=== PATIENT | female | born 1940 | race Caucasian/White ===

== ENCOUNTER → 2017-01-02 | Outpatient (REF) | payer MEDICARE | LOC: M SFHCCLAY 11:38 | PROVIDERS: ATTEND Nurse Practitioner | DX: N30.00 Acute cystitis without hematuria (principal) ==

== ENCOUNTER → 2017-01-06 | Outpatient (CLI) | payer MEDICARE ==
--- NOTE | 2017-01-06 12:47 | REP ---
Chest PA and lateral views: Comparisons are the PA and lateral views dated 09/09/[address] dated 05/14/2011. There is mediastinal widening from goitrous enlargement of the thyroid has a seen on the comparison CT. Upon review of the comparison CT, I note that the trachea is deviated anteriorly and to the right and is compressed by the goitrous enlargement of the thyroid. Lung morgan are clear. Cardiac size is normal. The jeremy, mediastinum, and bony thorax are unremarkable. Impression: No acute cardiopulmonary findings. Goitrous enlargement of the thyroid, resulting in mediastinal widening. On the comparison CT, The trachea is displaced anteriorly into the right and appears compressed by the enlarged thyroid. Signed by Santiago Bautista MD 01/06/2017 12:37 P
--- NOTE | 2017-01-07 11:20 | REP ---
Thyroid sonography: Repeat dictation. Shortness of breath on exertion. History of goiter and stridor. Comparison study: June 25, 2016 showed a multinodular thyroid on the right. The patient status post left thyroidectomy. Today's findings: The right lobe dimensions are 5.1 x 2.7 x 1.5 cm. The thyroid isthmus measures 0.3 cm in thickness. The left lobe is removed. No left thyroid tissue is seen. Right lobe contains a heterogeneous nodule in its upper pole with dimensions of 1.6 x 1.1 x 1.1 cm. There is also a mid thyroid nodule measuring 1.1 x 1.7 x 2.3 cm. A third nodule is seen in the medial aspect of the right thyroid at the isthmus measuring 1.5 x 1.6 x 1.1 cm. The mid pole nodule in the right lobe is a little larger than on the prior study. Otherwise unchanged. Impression: Multinodular thyroid. Three nodules identified. Signed by Dougie Antonio MD 01/07/2017 03:37 P
== END ==
LOC: M RAD 12:13
PROVIDERS: ATTEND Nurse Practitioner
DX: R06.02 Shortness of breath (principal)

== ENCOUNTER → 2017-02-05 | Outpatient (CLI) | payer MEDICARE ==
[2017-02-05 18:04] LABS: CREATININE FOR GFR 1.01 MG/DL (0.55-1.02)
== END ==
LOC: M LAB 16:53
PROVIDERS: ATTEND Nurse Practitioner Family
DX: Z01.89 Encounter for other specified special examinations (principal)

== ENCOUNTER → 2017-02-13 | Outpatient (CLI) | payer MEDICARE ==
[~2017-02-13] MED LIST: ISOVUE-370 76% 100ML VIAL (Q9967) As Ordered ONE
--- NOTE | 2017-02-13 14:45 | REP ---
Clinical: Shortness of breath. Technique: Axial contrast enhanced images from the thoracic inlet to the upper abdomen using 100 ml Isovue 370 intravenous contrast material with coronal and sagittal re-formations. Comparison: 05/14/2011. Findings: A large heterogeneous enhancing mass insinuates between in the trachea and the esophagus from the level of the thoracic inlet to the sonali measuring 10.0 x 4.1 x 6.7 cm and is most compatible with thyroid tissue likely residual from prior left reid-thyroid resection when compared to prior chest CT dated 05/14/2011. The right thyroid gland is mildly enlarged and demonstrates subtle posteroinferior extension as well. The trachea and sonali appear patent and relatively normal despite the large mass lesion. There is however mass effect on the esophagus posterior to the mass. The remainder of the mediastinum appears relatively normal with moderate atherosclerotic changes noted to the aorta and coronary arteries. No axillary, hilar, or mediastinal adenopathy is appreciated. The bilateral lung morgan are well-aerated and clear. No pulmonary parenchymal consolidation, nodule or mass lesion is appreciated. No pleural effusion/reaction or pneumothorax. Musculoskeletal structures are intact. Impression: 1. Large heterogeneous middle mediastinal mass measuring 10.0 x 4.1 x 6.7 cm with scattered parenchymal calcifications is most compatible with thyroid tissue and appears to cause compression and mass effect of the esophagus with a relatively normal patent appearance to the trachea by current evaluation. 2. No further acute mediastinal or pleuroparenchymal process. Signed by Rodriguez Lopez MD 02/13/2017 02:36 P
== END ==
LOC: M RAD 13:46
PROVIDERS: ATTEND Nurse Practitioner Family
DX: R06.02 Shortness of breath (principal)
CPT/HCPCS: 71260; Q9967

== ENCOUNTER → 2017-03-31 | Outpatient (REF) | payer MEDICARE | LOC: M SFHCCLAY 15:10 | PROVIDERS: ATTEND Nurse Practitioner | DX: N30.00 Acute cystitis without hematuria (principal) | CPT/HCPCS: 81002; 87088; 87186; G0463 ==

== ENCOUNTER → 2017-04-08 | Outpatient (CLI) | payer MEDICARE, OTHER ==
[2017-04-08 17:19] LABS: BLOOD UREA NITROGEN 19 MG/DL (7-18); CREATININE FOR GFR 0.72 MG/DL (0.55-1.02); GLOMERULAR FILTRATION RATE > 60.0 (>39)
== END ==
LOC: M LAB 15:24
PROVIDERS: ATTEND Thoracic Surgery (Cardiothoracic Vascular Surgery)
DX: J98.59 Other diseases of mediastinum, not elsewhere classified (principal)

== ENCOUNTER → 2017-04-14 | Outpatient (REF) | payer MEDICARE ==
[2017-04-14 12:05] LABS: FREE T4 1.17 NG/DL (0.76-1.46)
== END ==
LOC: M SFHCCLAY 08:59
PROVIDERS: ATTEND Family Medicine
DX: E04.9 Nontoxic goiter, unspecified (principal)
CPT/HCPCS: 84439; 84443; G0463

== ENCOUNTER → 2017-07-02 | Outpatient (REF) | payer MEDICARE | LOC: M SFHCCLAY 15:54 | PROVIDERS: ATTEND Family Medicine | DX: N30.00 Acute cystitis without hematuria (principal) | CPT/HCPCS: 81002; 87086; G0463 ==

== ENCOUNTER 2017-09-02 13:23 | Emergency (ER) | payer MEDICARE ==
[~2017-09-02] VITALS: Ht 172.7 cm; Wt 86.4 kg
[2017-09-02] MEDS ORDERED: CENTTAB36 PO (13:47)
[2017-09-02] MEDS ORDERED: TYLE325T5 PO (13:47)
[2017-09-02] MEDS ORDERED: SING4CHW9 PO (13:47)
[2017-09-02] MEDS ORDERED: OCUVTAB PO (13:47)
[2017-09-02] MEDS ORDERED: ALLE25CA6 PO (13:47)
[2017-09-02 14:59] LABS: BASO % 0.5 % (0.0-1.0); EOS % 0.4 % (0.0-3.0); IMMATURE GRANULOCYTE % 0.4 % (0-0); LYMPH # 1.2 10^3/uL (1.5-4.5); LYMPH % 15.6 % (24.0-44.0); MEAN CORPUSCULAR HGB CONC 32.9 g/dl (32.0-36.5); MONO # 0.6 10^3/uL (0.0-0.8); NEUTROPHILS # 5.5 10^3/uL (1.8-7.7); NEUTROPHILS % 75.1 % (36.0-66.0); PLATELET COUNT, AUTOMATED 197 10^3/uL (150-450); RED CELL DISTRIBUTION WIDTH 13.5 % (11.5-14.5); WHITE BLOOD COUNT 7.4 10^3/uL (4.0-10.0)
--- NOTE | 2017-09-02 15:22 | REP ---
PORTABLE CHEST: AP portable view of the chest is performed and compared to prior studies, most recent of which is 01/06/2017. There is no acute infiltrate. Lungs are unchanged in appearance. Heart is normal in size. There is some calcification of the thoracic aorta. 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 IMPRESSION: Stable chronic findings without evidence of acute infiltrate. Signed by Santiago Dobbs MD 09/03/2017 09:04 A
[2017-09-02 15:36] LABS: ALBUMIN 3.9 GM/DL (3.2-5.2); ALBUMIN/GLOBULIN RATIO 1.22 (1.00-1.93); ALKALINE PHOSPHATASE 96 U/L (45-117); ALT/SGPT 20 U/L (12-78); ANION GAP 8 MEQ/L (8-16); AST/SGOT 21 U/L (7-37); BILIRUBIN,DIRECT 0.1 MG/DL (0.0-0.2); BILIRUBIN,TOTAL 0.5 MG/DL (0.2-1.0); BLOOD UREA NITROGEN 16 MG/DL (7-18); CALCIUM LEVEL 9.1 MG/DL (8.8-10.2); CARBON DIOXIDE LEVEL 28 MEQ/L (21-32); CHLORIDE LEVEL 107 MEQ/L (98-107); GLOMERULAR FILTRATION RATE > 60.0 (>39); GLUCOSE, FASTING 101 MG/DL (83-110); MAGNESIUM LEVEL 2.3 MG/DL (1.8-2.4); POTASSIUM SERUM 4.3 MEQ/L (3.5-5.1); SODIUM LEVEL 143 MEQ/L (136-145); TOTAL PROTEIN 7.1 GM/DL (6.4-8.2)
[2017-09-02] MEDS ORDERED: ISOVUE-370 76% 100ML VIAL (Q9967) As Ordered ONE (16:21)
--- NOTE | 2017-09-02 17:28 | REP ---
CT of the chest with IV contrast, CT pulmonary angiography: Comparison is the chest CT dated 02/13/2017. There are no emboli in the pulmonary trunk or central pulmonary arteries. There are no emboli in the pulmonary artery lobe or segment branches. There are no infiltrates. There are no effusions. There is a soft tissue mediastinal mass containing calcifications measuring 6.6 cm transverse diameter, interposed between the trachea and esophagus. On the comparison study this measured 6.7 cm transverse diameter. The thyroid is unremarkable except that the left lobe appears somewhat atrophic. There may be surgical clips in the left thyroid bed. This is unchanged. There is no hilar or axillary adenopathy. There are no lung masses or nodules. There are no infiltrates or effusions. There is a small hiatal hernia. Impression: There is no pulmonary embolus. There are no infiltrates or effusions. There is a large mediastinal mass, similar to 02/13/2017. There are no lung masses. Signed by Santiago Bautista MD 09/02/2017 05:19 P
[2017-09-02 20:30] VITALS: BP 127/65
--- NOTE | 2017-09-02 21:24 | ECGEPIP ---
Stationary ECG Study [facility] - ED Test Date: 2017-09-02 Pat Name: BARBI COLEMAN Department: Room: - Gender: F Heater Helper: roger : 1940 Requested By: Odilia Leblanc Order Number: [id number] Reading MD: Odilia Leblanc Measurements Intervals [place] Rate: 90 P: 88 [place]: 155 QRS: 24 QRSD: 89 T: 52 QT: 365 QTc: 448 Interpretive Statements SINUS RHYTHM WITH OCCASIONAL SUPRAVENTRICULAR PREMATURE COMPLEXES MINIMAL ST DEPRESSION LOW VOLTAGE LIMB INCREASED RATE 08/15/15 Electronically Signed On 09-02-2017 21:23:43 EST by Odilia Leblanc
--- NOTE | 2017-09-03 19:51 | ECGEPIP ---
Stationary ECG Study [facility] Test Date: 2017-09-02 Pat Name: BARBI COLEMAN Department: Room: - Gender: F Brim Buster: JUHI : 1940 Requested By: Odilia Leblanc Order Number: [id number] Reading MD: Donn Bagley Measurements Intervals [place] Rate: 70 P: 82 [place]: 176 QRS: -3 QRSD: 76 T: 32 QT: 383 QTc: 416 Interpretive Statements SINUS RHYTHM WITH SINUS ARRHYTHMIA Decreased heart rate compared with 09/02/2017. Electronically Signed On 09-03-2017 19:51:07 EST by Donn Bagley
== END 2017-09-02 20:36 | disposition home or self-care (01) ==
LOC: M ED 13:23
DX: R07.9 Chest pain, unspecified (principal); R00.2 Palpitations; R30.0 Dysuria; R42 Dizziness and giddiness; Z79.899 Other long term (current) drug therapy; Z88.2 Allergy status to sulfonamides
CPT/HCPCS: 36415; 71010; 71275; 80048; 80076; 81001; 82550; 82553; 83690; 83735; 83880; 84443; 84484; 85025; 93005; 93041; 94760; 99285; Q9967

== ENCOUNTER → 2017-12-04 | Outpatient (REF) | payer MEDICARE ==
[2017-12-04 16:37] LABS: BASO # 0.1 10^3/uL (0.0-0.2); BASO % 0.9 % (0.0-1.0); EOS # 0.1 10^3/uL (0.0-0.50); HEMATOCRIT 46.4 % (36.0-47.0); HEMOGLOBIN 14.9 g/dl (12.0-16.0); IMMATURE GRANULOCYTE % 0.7 % (0-3.0); LYMPH # 1.3 10^3/uL (1.5-4.5); LYMPH % 23.3 % (24.0-44.0); MEAN CORPUSCULAR HEMOGLOBIN 28.7 pg (27.0-33.0); MEAN CORPUSCULAR HGB CONC 32.1 g/dl (32.0-36.5); MEAN CORPUSCULAR VOLUME 89.4 fl (80.0-96.0); MONO # 0.5 10^3/uL (0.0-0.8); MONO % 9.3 % (0.0-5.0); NEUTROPHILS # 3.5 10^3/uL (1.8-7.7); NEUTROPHILS % 63.8 % (36.0-66.0); PLATELET COUNT, AUTOMATED 194 10^3/uL (150-450); RED BLOOD COUNT 5.19 10^6/uL (4.00-5.40); RED CELL DISTRIBUTION WIDTH 12.8 % (11.5-14.5); WHITE BLOOD COUNT 5.5 10^3/uL (4.0-10.0)
[2017-12-04 17:08] LABS: ERYTHROCYTE SEDIMENTATION RATE 2 mm/hr (0-30)
[2017-12-04 17:36] LABS: ALBUMIN 3.7 GM/DL (3.2-5.2); ALBUMIN/GLOBULIN RATIO 1.37 (1.00-1.93); ALKALINE PHOSPHATASE 93 U/L (45-117); ALT/SGPT 16 U/L (12-78); ANION GAP 6 MEQ/L (8-16); AST/SGOT 15 U/L (7-37); BILIRUBIN,TOTAL 0.4 MG/DL (0.2-1.0); BLOOD UREA NITROGEN 17 MG/DL (7-18); CALCIUM LEVEL 8.8 MG/DL (8.8-10.2); CARBON DIOXIDE LEVEL 31 MEQ/L (21-32); CHLORIDE LEVEL 105 MEQ/L (98-107); CREATININE FOR GFR 0.68 MG/DL (0.55-1.30); FREE T3 3.1 PG/ML (2.2-4.0); GLOMERULAR FILTRATION RATE > 60.0 (>39); GLUCOSE, FASTING 71 MG/DL (70-100); POTASSIUM SERUM 4.7 MEQ/L (3.5-5.1); SODIUM LEVEL 142 MEQ/L (136-145); THYROID STIMULATING HORMONE 0.552 uIU/ML (0.358-3.740); TOTAL PROTEIN 6.4 GM/DL (6.4-8.2)
== END ==
LOC: M SFHCCLAY 11:00
DX: R53.82 Chronic fatigue, unspecified (principal); E04.9 Nontoxic goiter, unspecified
CPT/HCPCS: 84443

== ENCOUNTER → 2018-03-23 | Outpatient (REF) | payer MEDICARE ==
[2018-03-23 11:23] LABS: ANION GAP 7 MEQ/L (8-16); BLOOD UREA NITROGEN 18 MG/DL (7-18); CALCIUM LEVEL 8.4 MG/DL (8.8-10.2); CARBON DIOXIDE LEVEL 29 MEQ/L (21-32); CHLORIDE LEVEL 109 MEQ/L (98-107); CREATININE FOR GFR 0.79 MG/DL (0.55-1.30); GLOMERULAR FILTRATION RATE > 60.0 (>39); GLUCOSE, FASTING 94 MG/DL (70-100); POTASSIUM SERUM 4.3 MEQ/L (3.5-5.1); SODIUM LEVEL 145 MEQ/L (136-145)
== END ==
LOC: M LABDRAWC 10:58
DX: Z01.812 Encounter for preprocedural laboratory examination (principal); E04.9 Nontoxic goiter, unspecified
CPT/HCPCS: 80048

== ENCOUNTER → 2018-08-04 | Outpatient (REF) | payer MEDICARE ==
[2018-08-04 17:16] LABS: ALBUMIN 3.7 GM/DL (3.2-5.2); ALBUMIN/GLOBULIN RATIO 1.19 (1.00-1.93); ALKALINE PHOSPHATASE 109 U/L (45-117); ALT/SGPT 19 U/L (12-78); ANION GAP 7 MEQ/L (8-16); AST/SGOT 18 U/L (7-37); BILIRUBIN,TOTAL 0.3 MG/DL (0.2-1.0); BLOOD UREA NITROGEN 15 MG/DL (7-18); CALCIUM LEVEL 9.3 MG/DL (8.8-10.2); CARBON DIOXIDE LEVEL 31 MEQ/L (21-32); CHLORIDE LEVEL 103 MEQ/L (98-107); CREATININE FOR GFR 0.71 MG/DL (0.55-1.30); GLOMERULAR FILTRATION RATE > 60.0 (>39); GLUCOSE, FASTING 99 MG/DL (70-100); SODIUM LEVEL 141 MEQ/L (136-145); TOTAL PROTEIN 6.8 GM/DL (6.4-8.2)
[2018-08-04 17:42] LABS: BASO # 0.1 10^3/uL (0.0-0.2); BASO % 0.9 % (0.0-1.0); EOS # 0.1 10^3/uL (0.0-0.50); HEMATOCRIT 46.5 % (36.0-47.0); HEMOGLOBIN 14.9 g/dl (12.0-15.5); IMMATURE GRANULOCYTE % 0.7 % (0-3.0); LYMPH # 1.5 10^3/uL (1.5-4.5); LYMPH % 22.4 % (24.0-44.0); MEAN CORPUSCULAR HEMOGLOBIN 28.4 pg (27.0-33.0); MEAN CORPUSCULAR VOLUME 88.6 fl (80.0-96.0); MONO # 0.7 10^3/uL (0.0-0.8); NEUTROPHILS # 4.4 10^3/uL (1.8-7.7); PLATELET COUNT, AUTOMATED 207 10^3/uL (150-450); RED BLOOD COUNT 5.25 10^6/uL (4.00-5.40); RED CELL DISTRIBUTION WIDTH 13.5 % (11.5-14.5); WHITE BLOOD COUNT 6.9 10^3/uL (4.0-10.0)
== END ==
LOC: M SFHCCLAY 12:25
DX: K62.89 Other specified diseases of anus and rectum (principal); K62.5 Hemorrhage of anus and rectum
CPT/HCPCS: 80053

== ENCOUNTER 2018-09-09 10:03 | Day surgery (SDC) | payer MEDICARE ==
[~2018-09-09] VITALS: Ht 172.7 cm; Wt 54.3 kg
[~2018-09-09 10:03] MED LIST changes: +ALLE25CA6 PO; +CENTTAB36 PO; +ECHI400C2 PO; -ISOVUE-370 76% 100ML VIAL (Q9967) As Ordered ONE; +MESA50SU PR; +MONT10TA2 PO; +OCUVTAB PO; +OMEG1CAP16 PO; +SING4CHW9 PO; +TYLE325T5 PO; +VITA100072 PO; +VITA200015 PO; +VITA250T29 PO; +VITA500T PO
[2018-09-09] MEDS ORDERED: NS 1,000 ML IV ONE (10:45)
[2018-09-09] MEDS ORDERED: PROPOFOL 200 MG/20 ML VIAL As Ordered ONE (10:46)
[2018-09-09] MEDS ORDERED: LIDOCAINE 2% INJ 100 MG/5 ML SDV (FOR ANES.) As Ordered ONE (10:46)
--- NOTE | 2018-09-09 11:53 | ROOR ---
Patient Name: Ger Portillo Procedure Date: 09/09/2018 11:29 AM Date of : 1940 Age: 78 Room: [facility] Gender: Female Note Status: Finalized Procedure: Total Colonoscopy to Cecum + Biopsy Polypectomy + Biopsies Indications: Screening for colorectal malignant neoplasm, Last colonoscopy: 2006 Providers: Cale Alves MD Referring MD: Davonte Casanova MD Requesting Provider: Medicines: Monitored Anesthesia Care Complications: No immediate complications. Procedure: Pre-Anesthesia Assessment: - The heart rate, respiratory rate, oxygen saturations, blood pressure, adequacy of pulmonary ventilation, and response to care were monitored throughout the procedure. The Colonoscope was introduced through the anus and advanced to the cecum, identified by appendiceal orifice and ileocecal valve. The colonoscopy was performed without difficulty. The patient tolerated the procedure well. The quality of the bowel preparation was excellent. Findings: The perianal and digital rectal examinations were normal. Non-bleeding internal hemorrhoids were found during retroflexion. The hemorrhoids were small and Grade I (internal hemorrhoids that do not prolapse). Multiple small and large-mouthed diverticula were found in the recto-sigmoid colon, sigmoid colon and descending colon. A small polyp was found in the transverse colon. The polyp was sessile. The polyp was removed with a jumbo cold forceps. Resection and retrieval were complete. Segmental moderate inflammation characterized by altered vascularity, congestion (edema), erosions and erythema was found from 30 to 50 cm proximal to the anus. Biopsies were taken with a cold forceps for histology. The exam was otherwise without abnormality on direct and retroflexion views. Impression: - Non-bleeding internal hemorrhoids. - Diverticulosis in the recto-sigmoid colon, in the sigmoid colon and in the descending colon. - One small polyp in the transverse colon, removed with a jumbo cold forceps. Resected and retrieved. - Segmental moderate inflammation was found from 30 to 50 cm proximal to the anus secondary to left-sided ulcerative colitis. Biopsied. - The examination was otherwise normal on direct and retroflexion views. - The exam was otherwise normal to the cecum. Recommendation: - Patient has a contact number available for emergencies. The signs and symptoms of potential delayed complications were discussed with the patient. Return to normal activities tomorrow. Written discharge instructions were provided to the patient. - High fiber diet. - Discharge patient to home. - Continue present medications. - Await pathology results. - Telephone GI clinic for pathology results in 1 week. - Check Portal Online for Path Results.([email or web address]) - Return to referring physician. - The findings and recommendations were discussed with the patient's family. Cale Alves MD Cale Alves MD 09/09/2018 11:52:40 AM This report has been signed electronically. Number of Addenda: 0 Note Initiated On: 09/09/2018 11:29 AM Estimated Blood Loss: Estimated blood loss: none.
[2018-09-09 12:20] VITALS: BP 139/68
== END 2018-09-09 12:29 | disposition home or self-care (01) ==
LOC: M OPP 10:03
PROVIDERS: ATTEND Internal Medicine Gastroenterology
DX: Z12.11 Encounter for screening for malignant neoplasm of colon (principal); K64.0 First degree hemorrhoids; K57.90 Diverticulosis of intestine, part unspecified, without perforation or abscess without bleeding; D12.3 Benign neoplasm of transverse colon; K63.89 Other specified diseases of intestine; K52.9 Noninfective gastroenteritis and colitis, unspecified; I48.91 Unspecified atrial fibrillation; E04.1 Nontoxic single thyroid nodule; M19.90 Unspecified osteoarthritis, unspecified site; G62.9 Polyneuropathy, unspecified; J45.909 Unspecified asthma, uncomplicated; K62.5 Hemorrhage of anus and rectum; Z85.828 Personal history of other malignant neoplasm of skin; Z88.2 Allergy status to sulfonamides; Z79.899 Other long term (current) drug therapy

== ENCOUNTER → 2019-02-16 | Outpatient (REF) | payer MEDICARE ==
[~2019-02-16] MED LIST changes: +VITA100018 PO; -VITA100072 PO
[2019-02-16 12:46] LABS: BLOOD UREA NITROGEN 14 MG/DL (7-18); CARBON DIOXIDE LEVEL 28 MEQ/L (21-32); CHLORIDE LEVEL 106 MEQ/L (98-107); GLOMERULAR FILTRATION RATE > 60.0 (>39); GLUCOSE, FASTING 78 MG/DL (70-100); POTASSIUM SERUM 4.1 MEQ/L (3.5-5.1); SODIUM LEVEL 143 MEQ/L (136-145)
== END ==
LOC: M LABDRAWC 11:14
PROVIDERS: ATTEND Nurse Practitioner Family
DX: J98.59 Other diseases of mediastinum, not elsewhere classified (principal)

== ENCOUNTER → 2019-07-26 | Outpatient (REF) | payer MEDICARE ==
[2019-07-26 17:10] LABS: HEMOGLOBIN 14.6 g/dl (12.0-15.5); MEAN CORPUSCULAR HEMOGLOBIN 28.4 pg (27.0-33.0); MEAN CORPUSCULAR HGB CONC 31.1 g/dl (32.0-36.5); MEAN CORPUSCULAR VOLUME 91.4 fl (80.0-96.0); PLATELET COUNT, AUTOMATED 204 10^3/uL (150-450); RED BLOOD COUNT 5.14 10^6/uL (4.00-5.40); WHITE BLOOD COUNT 5.2 10^3/uL (4.0-10.0)
[2019-07-26 17:24] LABS: ALBUMIN 3.5 GM/DL (3.2-5.2); ALT/SGPT 28 U/L (12-78); BILIRUBIN,TOTAL 0.7 MG/DL (0.2-1.0); BLOOD UREA NITROGEN 19 MG/DL (7-18); CALCIUM LEVEL 9.2 MG/DL (8.8-10.2); CARBON DIOXIDE LEVEL 29 MEQ/L (21-32); CHLORIDE LEVEL 109 MEQ/L (98-107); FREE T4 0.82 NG/DL (0.76-1.46); GLOMERULAR FILTRATION RATE > 60.0 (>39); GLUCOSE, FASTING 85 MG/DL (70-100); POTASSIUM SERUM 4.6 MEQ/L (3.5-5.1); SODIUM LEVEL 144 MEQ/L (136-145); TOTAL PROTEIN 6.7 GM/DL (6.4-8.2)
[2019-07-26 18:20] LABS: ERYTHROCYTE SEDIMENTATION RATE 8 mm/hr (0-30)
== END ==
LOC: M SFHCCLAY 09:03
PROVIDERS: ATTEND Family Medicine
DX: Q89.2 Congenital malformations of other endocrine glands (principal); G62.9 Polyneuropathy, unspecified; K51.818 Other ulcerative colitis with other complication; J45.909 Unspecified asthma, uncomplicated

== ENCOUNTER → 2020-02-25 | Outpatient (REF) | payer MEDICARE ==
[~2020-02-25] MED LIST changes: -ALLE25CA6 PO; -MONT10TA2 PO; +MONT10TA4 PO; +MULT25CA2 PO; +VITA-243 PO; -VITA500T PO
[2020-02-25 12:27] LABS: BASO % 0.8 % (0.0-1.0); EOS # 0.1 10^3/uL (0.0-0.5); EOS % 2.1 % (0.0-3.0); HEMATOCRIT 48.7 % (36.0-47.0); HEMOGLOBIN 15.2 g/dl (12.0-15.5); LYMPH # 1.4 10^3/uL (1.5-5.0); LYMPH % 26.2 % (24.0-44.0); MEAN CORPUSCULAR HEMOGLOBIN 27.6 pg (27.0-33.0); MEAN CORPUSCULAR HGB CONC 31.2 g/dl (32.0-36.5); MEAN CORPUSCULAR VOLUME 88.5 fl (80.0-96.0); MONO # 0.6 10^3/uL (0.0-0.8); MONO % 11.1 % (0.0-5.0); NEUTROPHILS # 3.1 10^3/uL (1.5-8.5); NEUTROPHILS % 59.2 % (36.0-66.0); PLATELET COUNT, AUTOMATED 197 10^3/uL (150-450); WHITE BLOOD COUNT 5.3 10^3/uL (4.0-10.0)
[2020-02-25 13:01] LABS: ALBUMIN 3.8 GM/DL (3.2-5.2); ALT/SGPT 24 U/L (12-78); BILIRUBIN,TOTAL 0.6 MG/DL (0.2-1.0); BLOOD UREA NITROGEN 16 MG/DL (7-18); CALCIUM LEVEL 9.3 MG/DL (8.8-10.2); CARBON DIOXIDE LEVEL 31 MEQ/L (21-32); CHLORIDE LEVEL 108 MEQ/L (98-107); CREATININE FOR GFR 0.74 MG/DL (0.55-1.30); GLOMERULAR FILTRATION RATE > 60.0 (>39); GLUCOSE, FASTING 105 MG/DL (70-100); POTASSIUM SERUM 4.2 MEQ/L (3.5-5.1); SODIUM LEVEL 142 MEQ/L (136-145); TOTAL PROTEIN 6.9 GM/DL (6.4-8.2)
[2020-02-25 13:31] LABS: CA19-9 TUMOR MARKER,CARBOHYDRA 30.7 U/ML (<35.0)
== END ==
LOC: M LABDRAWC 11:34
DX: R97.8 Other abnormal tumor markers (principal); K86.9 Disease of pancreas, unspecified

== ENCOUNTER 2020-11-19 11:36 | Observation (INO) | payer MEDICARE ==
[~2020-11-19] VITALS: Ht 172.7 cm; Wt 103.9 kg
[~2020-11-19 11:36] MED LIST changes: +ASPIRIN 81 MG ENTERIC TAB PO SCH; +MONT10TA10 PO; -MONT10TA4 PO
[2020-11-19 12:05] LABS: BASO # 0.1 10^3/uL (0.0-0.2); BASO % 0.8 % (0.0-1.0); EOS # 0.1 10^3/uL (0.0-0.5); EOS % 1.8 % (0.0-3.0); HEMATOCRIT 49.5 % (36.0-47.0); HEMOGLOBIN 15.4 g/dl (12.0-15.5); LYMPH % 27.1 % (24.0-44.0); MEAN CORPUSCULAR HEMOGLOBIN 27.5 pg (27.0-33.0); MEAN CORPUSCULAR HGB CONC 31.1 g/dl (32.0-36.5); MEAN CORPUSCULAR VOLUME 88.4 fl (80.0-96.0); MONO # 0.7 10^3/uL (0.0-0.8); MONO % 8.8 % (2.0-8.0); NEUTROPHILS # 4.5 10^3/uL (1.5-8.5); NEUTROPHILS % 60.7 % (36.0-66.0); PLATELET COUNT, AUTOMATED 200 10^3/uL (150-450); WHITE BLOOD COUNT 7.4 10^3/uL (4.0-10.0)
[2020-11-19 12:15] LABS: INR 0.98; PROTHROMBIN TIME 13.2 SECONDS (12.5-14.3)
[2020-11-19 12:16] LABS: PARTIAL THROMBOPLASTIN TIME 23.6 SECONDS (24.2-38.5)
--- NOTE | 2020-11-19 12:20 | REP ---
INDICATION: CHEST PAIN. COMPARISON: 09/02/2017 as well as multiple other prior exams. TECHNIQUE: Single frontal portable view chest. FINDINGS: There is no acute infiltrate or pulmonary edema. Lungs are unchanged since prior studies. Heart is normal in size. There is a known mediastinal mass predominantly on the right, which has demonstrated a very slow increase in size gradually since the 2011 exams. This is most compatible with intrathoracic goiter. IMPRESSION: NO ACUTE PULMONARY DISEASE.Very slowly enlarging mediastinal mass since 2010 compatible with intrathoracic goiter. <Electronically signed by Santiago Dobbs > 11/19/20 [id number]
[2020-11-19 12:36] LABS: ALBUMIN 3.9 GM/DL (3.2-5.2); ALT/SGPT 23 U/L (12-78); BILIRUBIN,DIRECT 0.1 MG/DL (0.0-0.2); BILIRUBIN,TOTAL 0.4 MG/DL (0.2-1.0); BLOOD UREA NITROGEN 14 MG/DL (7-18); CALCIUM LEVEL 8.7 MG/DL (8.8-10.2); CARBON DIOXIDE LEVEL 27 MEQ/L (21-32); CHLORIDE LEVEL 108 MEQ/L (98-107); CREATININE FOR GFR 0.83 MG/DL (0.55-1.30); FREE T4 0.95 NG/DL (0.76-1.46); GLOMERULAR FILTRATION RATE > 60.0 (>39); GLUCOSE, FASTING 122 MG/DL (70-100); LIPASE 72 U/L (73-393); POTASSIUM SERUM 3.7 MEQ/L (3.5-5.1); SODIUM LEVEL 143 MEQ/L (136-145)
[2020-11-19 13:40] LABS: RSV AMPLIFICATION NEGATIVE (NEGATIVE)
[2020-11-19] MEDS ORDERED: ACET1TAB55 PO (15:07)
[2020-11-19] MEDS ORDERED: VITA200010 PO (15:07)
[2020-11-19] MEDS ORDERED: MULT1TAB50 PO (15:07)
[2020-11-19] MEDS ORDERED: ACETAMINOPHEN TAB 650MG DOSE (2X325MG) PO PRN (15:45)
--- NOTE | 2020-11-19 15:58 | ED PDOC ---
Post-Departure Follow-Up radiology rpeort faxed to Odilia Horton MD Nov 19, 2020 15:58
[2020-11-19] MEDS ORDERED: ALBUTEROL 90 MCG/ACT 8GM HFA INHALER INH PRN (16:20)
--- NOTE | 2020-11-19 16:35 | HPEPDOC ---
General Date of Admission Nov 19, 2020 at 11:37 Date of Service: Nov 19, 2020 Chief Complaint The patient is a 80-year-old female admitted with a reason for visit of Chest Pain and Near Syncope. Source: Patient History of Present Illness Mrs. Portillo is a 80-year-old female with asthma and large intrathoracic goiter who presents with near syncopal event and chest pain. In , she had a vertigo episode. During workup they found that she had a large goiter. In 2009, they removed part of her thyroid, and they thought that they had removed the goiter. In 2017, they found that she had intrathoracic goiter. During preop evaluation, she had a stress test which she developed A. fib. She did not complete her stress test and she wore a heart monitor afterwards. Dr. Devine was the environmental engineering intern who had ordered the stress test and heart monitor. She wasn't sure if the heart monitor shown anything. She never followed up with the environmental engineering intern, and she is never given medications for atrial fibrillation. In respect to her intrathoracic goiter, she went to [facility]. They recommended monitoring for now and consider surgery when it causes more symptoms. Since then, she's been having worsening dyspnea. She is suspecting that this was secondary to her goiter. The past year was the worst. Today, she is sitting down reading the Friday paper when she started to have blurry vision and the sensation that she is given a pass out. She felt some chest pressure and palpitations. She called the ambulance She was worried that she's been a pass out. She said the sensations lasted for about 15 minutes before resolving. She was in the ED at that time. When she first came in her heart rate was sinus tachycardia at 109. Otherwise, her only other symptom she's noticed was abd ominal cramping that started in the ED. Has not had a bowel movement today. Since she is had A. fib in the past, I discussed with her about anticoagulation. She requested to be on aspirin instead for the time being. Patient will be placed in observation for near syncopal event and chest pain. Home Medications Scheduled Ascorbic Acid (Vitamin C) 500 Mg Tab, 1,000 MG PO DAILY, (Reported) Cholecalciferol (Vitamin D3) (Vitamin D3) 50 Mcg Tablet, 50 MCG PO DAILY, (Reported) Cyanocobalamin (Vitamin B-12) (Vitamin B-12) 1,000 Mcg Tab, 1,000 MCG PO DAILY, (Reported) Echinacea (Echinacea) 400 Mg Cap, 400 MG PO DAILY, (Reported) Montelukast Sodium (Montelukast Sodium) 10 Mg Tab, 10 MG PO DAILY, (Reported) Multivitamin/Iron/Folic Acid (Centrum Adults Tablet) 1 Each Tablet, 1 EACH PO DAILY, (Reported) Thiamine HCl (Vitamin B-1) 250 Mg Tab, 250 MG PO DAILY, (Reported) Vits A,C,E/Lutein/Minerals (Ocuvite with Lutein Tablet) 1 Tab Tab, 1 TAB PO DAILY, (Reported) Scheduled PRN Acetaminophen (Acetaminophen) 325 Mg Tablet, 650 MG PO Q6H PRN for PAIN, (Reported) Allergies Coded Allergies: Sulfa (Sulfonamide Antibiotics) (Verified Allergy, Unknown, 11/19/20) Past Medical History Medical History 1. Large goiter left side 2. Malignant melanoma in situ 3. Asthma 4. Environmental allergens 5. 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 Mediastinal mass Surgical History 1. Malignant melanoma excision 2. Laparoscopy 3. Partial thyroidectomy 4. Colonoscopy 2006 Family History Father: at 43 years old, history of ME Mother: , history of CVA Social History * Smoker: non-smoker Alcohol: Denies Drugs: denies A-FIB/CHADSVASC A-FIB History Current/History of A-Fib/PAF?: Yes Current PO Anticoag Therapy: No Age/Risk Factor Scoring CHADSVASC: CHADSVASC Response (Comments) Value Age Risk Factor Age >/= 75 years old 2 Gender Risk Factor Female 1 Hx of CHF No 0 Hx of HTN No 0 Hx of Stroke/TIA/or VTE No 0 Hx of Diabetes No 0 Hx of Vascular Disease No 0 Total 3 Treatment Treatment ordered: NONE Reason Anticoagulant not given: Patient refusal Other reason anticoagulant not: Discussed anticoagulation with patient. 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) Psych: Denies: Anxiety, Depression Physical Examination General Exam: Positive: Alert, Cooperative Eye Exam: Positive: EOMI; Negative: Sclera icteric ENT Exam: Positive: Atraumatic Neck Exam: Positive: Other (she has extra tissue around neck) Chest Exam: Positive: Clear to auscultation Heart Exam: Positive: Rate Normal, Regular Rhythm Abdomen Exam: Positive: Normal bowel sounds, Soft; Negative: Tenderness Extremity Exam: Negative: Edema Neuro Exam: Positive: Cranial Nerves 3-12 NL Psych Exam: Positive: Anxiety Vital Signs Vital Signs Date Time Temp Pulse Resp B/P (MAP) Pulse Ox O2 Delivery O2 Flow Rate FiO2 11/19/20 13:45 86 16 126/69 (88) 96 Room Air 11/19/20 11:51 97.3 Laboratory Data Labs 24H Laboratory Tests 2 11/19/20 11:52: Immature Granulocyte % (Auto) 0.8, Neutrophils (%) (Auto) 60.7, Lymphocytes (%) (Auto) 27.1, Monocytes (%) (Auto) 8.8H, Eosinophils (%) (Auto) 1.8, Basophils (%) (Auto) 0.8, Neutrophils # (Auto) 4.5, Lymphocytes # (Auto) 2.0, Monocytes # (Auto) 0.7, Eosinophils # (Auto) 0.1, Basophils # (Auto) 0.1, Nucleated Red Blood Cells % (auto) 0.0, Prothrombin Time 13.2, Prothromb Time International Ratio 0.98, Activated Partial Thromboplast Time 23.6L, POC Troponin I (Misc) 0.02, Anion Gap 8, Glomerular Filtration Rate > 60.0, Calcium Level 8.7L, Total Bilirubin 0.4, Direct Bilirubin 0.1, Aspartate Amino Transf (AST/SGOT) 17, Alanine Aminotransferase (ALT/SGPT) 23, Alkaline Phosphatase 128H, Total Protein 7.0, Albumin 3.9, Albumin/Globulin Ratio 1.3, Lipase 72L, Thyroid Stimulating Hormone (TSH) 4.460H, Free Thyroxine 0.95 11/19/20 12:53: Coronavirus (COVID-19)(PCR) NEGATIVE, Influenza Type A (RT-PCR) NEGATIVE, Influenza Type B (RT-PCR) NEGATIVE, Respiratory Syncytial Virus (PCR) NEGATIVE 11/19/20 13:59: POC Troponin I (Misc) 0.08 CBC/BMP Laboratory Tests 11/19/20 11:52 Assessment/Plan Mrs. Portillo is a 80-year-old female with asthma and large intrathoracic goiter who presents with near syncopal event and chest pain. We'll monitor patient on telemetry for arrhythmias and echocardiogram will be obtained tomorrow. Troponins are slightly elevated at 0.02 and 0.08. Continue trending troponins until plateau or decline. Discussed anticoagulation due to her history of A. fib. Patient declined and wanted to be on aspirin at this time. Plan / VTE VTE Prophylaxis Ordered?: Yes Plan Plan 1. Near syncopal event Monitor on telemetry Echocardiogram ordered Trend troponins 2. Chest pain Restrictive chest pressure and substernal Reports his strength sensation which may be palpitations EKG did not have any ST elevations or depressions Troponin mildly elevated, may be secondary to demand ischemia She did not receive aspirin in the ambulance. We'll give her full dose aspirin once and continue aspirin 81 afterwards We'll give her high-dose statin Cardiac risk factors include early history of heart disease in family (father had a ME before the age of 43) We'll check HbA1c and lipid panel in the morning 3. Questionable atrial fibrillation Monitor on telemetry CADSVASC2 score of 3 for age and gender Discussed with her about anticoagulation. She requested to be on aspirin for the time being 4. Asthma Continue montelukast Did not see albuterol on med list. We'll add on as needed 5. DVT prophylaxis Lovenox Disposition: May need to touch base with Dr. Devine's office in question to her atrial fibrillation. Otherwise monitor on telemetry overnight and echocardiogram in the morning. If no events and troponin trend downwards, she may be able to go home tomorrow with recommendations to follow up with Cardiology and PCP DEION HALL DO Nov 19, 2020 16:24
[2020-11-19] MEDS ORDERED: ASPIRIN 81 MG CHEW TABLET PO ONE (17:00)
[2020-11-19 17:10] VITALS: BP 172/63
[2020-11-19 17:15] VITALS: BP 132/63
[2020-11-19] MEDS: MONTELUKAST 10 MG TAB PO SCH (18:22)
[2020-11-19 20:00] VITALS: BP 125/64
--- NOTE | 2020-11-19 20:10 | ECGEPIP ---
[facility] - ED Test Date: 2020-11-19 Pat Name: BARBI COLEMAN Department: Room: - Gender: Female Cosmetics Presser: abby : 1940 Requested By: Odilia Leblanc Order Number: [id number] Reading MD: Elliott Galeano Measurements Intervals [place] Rate: 113 P: 78 [place]: 180 QRS: -53 QRSD: 104 T: 89 QT: 328 QTc: 449 Interpretive Statements Sinus tachycardia Left anterior fascicular block Minimal voltage criteria for LVH, may be normal variant ( [place] product ) Possible Anterior infarct , age undetermined Electronically Signed on 11-19-2020 20:09:37 EST by Elliott Galeano
--- NOTE | 2020-11-19 20:29 | ECGEPIP ---
[facility] - ED Test Date: 2020-11-19 Pat Name: BARBI COLEMAN Department: Room: - Gender: Female Cloth Folder Machine: kory : 1940 Requested By: NORA DE LA O Order Number: [id number] Reading MD: Elliott Galeano Measurements Intervals [place] Rate: 83 P: 84 [place]: 174 QRS: -47 QRSD: 88 T: 19 QT: 368 QTc: 432 Interpretive Statements Normal sinus rhythm Left axis deviation LEFT ANTERIOR FASCICULAR BLOCK Possible Anterior infarct , age undetermined SIMILAR TO PRIOR ON SAME DATE Electronically Signed on 11-19-2020 20:28:30 EST by Elliott Galeano
[2020-11-19] MEDS ORDERED: ENOXAPARIN 40MG/0.4ML SYRINGE (J1650 PER 10MG) SC SCH (21:00)
[2020-11-19] MEDS ORDERED: ATORVASTATIN 20 MG TAB PO SCH (21:00)
[2020-11-20] VITALS (7 sets, daily range): BP systolic 97–134; BP diastolic 49–73
[2020-11-20 04:40] LABS: HEMATOCRIT 45.8 % (36.0-47.0); HEMOGLOBIN 14.3 g/dl (12.0-15.5); MEAN CORPUSCULAR HEMOGLOBIN 27.8 pg (27.0-33.0); MEAN CORPUSCULAR HGB CONC 31.2 g/dl (32.0-36.5); MEAN CORPUSCULAR VOLUME 89.1 fl (80.0-96.0); PLATELET COUNT, AUTOMATED 170 10^3/uL (150-450); RED BLOOD COUNT 5.14 10^6/uL (4.00-5.40); WHITE BLOOD COUNT 6.4 10^3/uL (4.0-10.0)
[2020-11-20 05:03] LABS: HEMOGLOBIN A1c 5.3 %
[2020-11-20 05:07] LABS: BLOOD UREA NITROGEN 13 MG/DL (7-18); CALCIUM LEVEL 8.4 MG/DL (8.8-10.2); CARBON DIOXIDE LEVEL 27 MEQ/L (21-32); CHLORIDE LEVEL 109 MEQ/L (98-107); CHOLESTEROL LEVEL 184 MG/DL (<200); CREATININE FOR GFR 0.74 MG/DL (0.55-1.30); GLOMERULAR FILTRATION RATE > 60.0 (>39); GLUCOSE, FASTING 91 MG/DL (70-100); HDL CHOLESTEROL 50 MG/DL (>40); LDL CHOLESTEROL 111 MG/DL (<100); MAGNESIUM LEVEL 2.3 MG/DL (1.8-2.4); NON-HDL-C 134 MG/DL; POTASSIUM SERUM 4.8 MEQ/L (3.5-5.1); SODIUM LEVEL 141 MEQ/L (136-145); TRIGLYCERIDES LEVEL 117 MG/DL (<150); TROPONIN I 0.12 NG/ML (< 0.10)
[2020-11-20] MEDS ORDERED: SLF 3 ML SYR IV PRN (07:45)
[2020-11-20] MEDS: MONTELUKAST 10 MG TAB PO SCH (08:34)
[2020-11-20] MEDS ORDERED: ASCORBIC ACID 500 MG TAB PO SCH (09:00)
[2020-11-20] MEDS ORDERED: CYANOCOBALAMIN 500 MCG TAB PO SCH (09:00)
[2020-11-20] MEDS ORDERED: THIAMINE 100 MG TAB PO SCH (09:00)
[2020-11-20] MEDS ORDERED: OCUVITE 1 TAB PO SCH (09:00)
[2020-11-20 10:14] LABS: NT-PRO BNP 490 PG/ML (<450)
[2020-11-20] MEDS ORDERED: NS 500 ML IV ONE (11:10)
[2020-11-20] MEDS ORDERED: SLF 3 ML SYR IV SCH (14:00)
[2020-11-20] MEDS ORDERED: ASPI-569 PO (15:20)
[2020-11-20] MEDS ORDERED: ATOR40TA75 PO (15:20)
--- NOTE | 2020-11-20 23:45 | DS.PDOC ---
Discharge Summary General Date of Admission Nov 19, 2020 at 11:37 Date of Discharge Nov 20, 2020 Discharge Summary PROCEDURES PERFORMED DURING STAY: None ADMITTING DIAGNOSES: 1. Near Syncope 2. Atypical chest pain 3. Palpitations 4. Asthma DISCHARGE DIAGNOSES: 1. Near Syncope 2. Atypical chest pain 3. Palpitations 4. Asthma COMPLICATIONS/CHIEF COMPLAINT: Chest Pain Near Syncope. HISTORY OF PRESENT ILLNESS: Mrs. Portillo is a 80-year-old female with asthma and large intrathoracic goiter who presents with near syncopal event and chest pain. In , she had a vertigo episode. During workup they found that she had a large goiter. In 2009, they removed part of her thyroid, and they thought that they had removed the goiter. In 2017, they found that she had intrathoracic goiter. During preop evaluation, she had a stress test which she developed A. fib. She did not complete her stress test and she wore a heart monitor afterwards. Dr. Devine was the plate glass installer who had ordered the stress test and heart monitor. She wasn't sure if the heart monitor shown anything. She never followed up with the plate glass installer, and she is never given medications for atrial fibrillation. In respect to her intrathoracic goiter, she went to [place]. They recommended monitoring for now and consider surgery when it causes more symptoms. Since then, she's been having worsening dyspnea. She is suspecting that this was secondary to her goiter. The past year was the worst. Today, she is sitting down reading the Friday paper when she started to have blurry vision and the sensation that she is given a pass out. She felt some chest pressure and palpitations. She called the ambulance since she felt like passing out. She said her symptoms lasted for about 15 minutes before resolving. She was in the ED at that time. When she first came in, her heart rate was sinus tachycardia at 109. Otherwise, her only other symptom she's noticed was abdominal cramping that started in the ED. Has not had a bowel movement today. Since she is had A. fib in the past, I discussed with her about anticoagulation. She requested to be on aspirin instead for the time being. That night, I gave her full dose aspirin and started high dose atorvastatin. Continued baby dose aspirin for next day. Patient will be placed in observation for near syncopal event and chest pain. HOSPITAL COURSE: That night, she had a rise in troponin from 0.08 to 0.21. Then it trended down to 0.20 and 0.12. This may have been due to different troponin test (the 0.08 was from a POC troponin vs the 0.21 was a laboratory troponin) or residual from demand ischemia prior. That morning, there was no events on telemetry. She felt well and did not have any reoccurrence of symptoms and no chest pressure. I reached out to Dr. Devine and discussed the case with him. He told me that the patient had frequent PAC and some PVC on the heart monitor, but no atrial fibrillation. No history of atrial fibrillation in their chart. He recommended that she should follow up with him outpatient. Otherwise, patient was concerned that her dyspnea on exertion may be from her heart. Her BNP was not significantly elevated at 490. Otherwise, she felt ready for home and was subsequently discharged home. DISCHARGE MEDICATIONS: Please see below. ALLERGIES: Please see below. PHYSICAL EXAMINATION ON DISCHARGE: VITAL SIGNS: Please see below. GENERAL: Comfortable, in no apparent distress HEENT: Head normocephalic, atraumatic NECK: Supple CARDIOVASCULAR EXAMINATION: Regular rate and rhythm RESPIRATORY EXAMINATION: Lungs clear to auscultation bilaterally ABDOMINAL EXAMINATION: Soft, non-tender, normal bowel sounds EXTREMITIES: No pitting edema bilaterally SKIN: Warm and dry NEUROLOGICAL EXAMINATION: CN 3-12 grossly intact PSYCHIATRIC EXAMINATION: Normal mood and affect LABORATORY DATA: Please see below. IMAGING: CXR NO ACUTE PULMONARY DISEASE.Very slowly enlarging mediastinal mass since 2010 compatible with intrathoracic goiter. PROGNOSIS: Good ACTIVITY: As tolerated. DIET: As tolerated DISCHARGE PLAN: Home DISPOSITION: Home, Self-Care. DISCHARGE INSTRUCTIONS: 1. Follow up with PCP within 5 days 2. Follow up with Cardiology next week DISCHARGE CONDITION: Stable. Total time spent on discharge planning, discharge summary, and medication reconciliation: 40 minutes Vital Signs/I&Os Vital Signs Date Time Temp Pulse Resp B/P (MAP) Pulse Ox O2 Delivery O2 Flow Rate FiO2 11/20/20 15:16 97.2 75 18 124/57 (79) 95 Room Air I&O- Last 24 Hours up to 6 AM 11/20/20 06:00 Intake Total 475 ml Output Total 350 ml Balance 125 ml Laboratory Data Labs 24H Laboratory Tests 2 11/19/20 23:54: Troponin I 0.20H 3/1/21 04:27: Troponin I 0.12#H, Nucleated Red Blood Cells % (auto) 0.0, Anion Gap 5L, Glomerular Filtration Rate > 60.0, Estimated Mean Plasma Glucose 105, Hemoglobin A1c 5.3, Calcium Level 8.4L, Magnesium Level 2.3, NI-Wra-K-Type Natriuretic Peptide 490H, Triglycerides Level 117, Total Cholesterol 184, LDL Cholesterol 111H, Non-HDL Cholesterol (LDL + VLDL) 134, Total HDL Cholesterol 50, Cholesterol/HDL Ratio 3.680 CBC/BMP Laboratory Tests 11/20/20 04:27 Discharge Medications Scheduled Ascorbic Acid (Vitamin C) 500 Mg Tab, 1,000 MG PO DAILY, (Reported) Aspirin (Aspirin EC) 81 Mg Tablet.dr, 81 MG PO DAILY Atorvastatin Calcium (Atorvastatin Calcium) 40 Mg Tablet, 40 MG PO QPM Cholecalciferol (Vitamin D3) (Vitamin D3) 50 Mcg Tablet, 50 MCG PO DAILY, (Reported) Cyanocobalamin (Vitamin B-12) (Vitamin B-12) 1,000 Mcg Tab, 1,000 MCG PO DAILY, (Reported) Echinacea (Echinacea) 400 Mg Cap, 400 MG PO DAILY, (Reported) Montelukast Sodium (Montelukast Sodium) 10 Mg Tab, 10 MG PO DAILY, (Reported) Multivitamin/Iron/Folic Acid (Centrum Adults Tablet) 1 Each Tablet, 1 EACH PO DAILY, (Reported) Thiamine HCl (Vitamin B-1) 250 Mg Tab, 250 MG PO DAILY, (Reported) Vits A,C,E/Lutein/Minerals (Ocuvite with Lutein Tablet) 1 Tab Tab, 1 TAB PO DAILY, (Reported) Scheduled PRN Acetaminophen (Acetaminophen) 325 Mg Tablet, 650 MG PO Q6H PRN for PAIN, (Reported) Allergies Coded Allergies: Sulfa (Sulfonamide Antibiotics) (Verified Allergy, Unknown, 11/19/20) DEION HALL 1, 2021 23:45
--- NOTE | 2020-11-21 14:15 | ECHO ---
DATE OF PROCEDURE: 11/20/2020 Age: 80 Gender: Female Height: 173 cm Weight: 91 kg REFERRING PHYSICIAN: Dr. Davis Castro. INDICATION: Syncope. MEASUREMENTS: 2D Measurements: Intraventricular septum 1.07 cm Posterior wall 0.96 cm Left ventricle diastole 4.7 cm Aortic root 3.2 cm Left atrium 3.8 cm Left atrium volume index 25 cm Inferior vena cava 1.3 cm (more than 50% respiratory variation) Doppler Measurements: No aortic stenosis No aortic regurgitation Aortic valve velocity 132 cm/s LVOT velocity 158 cm/s LVOT VTI 28.4 cm Trace mitral regurgitation No mitral stenosis Mitral E velocity 101 cm/s Mitral A velocity 59.6 cm/s Mitral deceleration time 260 msec Mild tricuspid regurgitation Estimated right ventricle systolic pressure 27-32 mmHg Estimated central venous pressure of 5-10 mmHg No pulmonic regurgitation Pulmonary artery acceleration time 111 msec suggestive of normal PA systolic pressure MITRAL ANNULAR TISSUE DOPPLER E prime lateral 7.3 cm/s, E prime septal 8.7 cm/s DESCRIPTION: Rhythm was sinus. Image quality was fair. This was a 2D, M-mode, color flow Doppler, and pulsed wave Doppler examination including mitral annular tissue Doppler. CONCLUSIONS: 1. Normal left ventricle internal dimensions and wall thickness. Normal regional LV wall motion and wall thickening. Hyperdynamic LV systolic function. LVEF of 70-75% by visual estimate. Normal LV diastolic function. 2. Mild aortic valve sclerosis with a 3-cusp aortic valve. No aortic regurgitation. 3. Mild mitral annular calcification. Trace mitral regurgitation. 4. Tiny pericardial effusion. No diastolic chamber collapse. 5. Otherwise normal appearing echocardiogram Doppler findings. MTDD
== END 2020-11-20 17:10 | disposition home or self-care (01) ==
LOC: EDBD 11:36 → M ED 11:36 → M ED INP 11:37 → M PCU 16:45
PROVIDERS: ADMIT Internal Medicine; ATTEND Internal Medicine
DX: R55 Syncope and collapse (principal); R07.89 Other chest pain; R00.2 Palpitations; J45.909 Unspecified asthma, uncomplicated; E04.9 Nontoxic goiter, unspecified; Z79.82 Long term (current) use of aspirin; Z79.899 Other long term (current) drug therapy; Z88.2 Allergy status to sulfonamides
CPT/HCPCS: 36415; 71045; 80048; 80061; 80076; 83036; 83690; 83735; 83880; 84439; 84443; 84484; 85025; 85027; 85610; 85730; 87631; 93005; 93041; 93306; 94760; 96372; 99285; G0378; J1650

== ENCOUNTER → 2021-07-04 | Outpatient (REF) | payer MEDICARE ==
[~2021-07-04] MED LIST changes: +ACET1TAB55 PO; +ASPI-569 PO; -ASPIRIN 81 MG ENTERIC TAB PO SCH; +ATOR40TA75 PO; +MULT1TAB50 PO; +VITA200010 PO
[2021-07-04 12:16] LABS: BLOOD UREA NITROGEN 14 MG/DL (7-18); CALCIUM LEVEL 9.1 MG/DL (8.8-10.2); CARBON DIOXIDE LEVEL 32 MEQ/L (21-32); CHLORIDE LEVEL 109 MEQ/L (98-107); CREATININE FOR GFR 0.78 MG/DL (0.55-1.30); GLOMERULAR FILTRATION RATE > 60.0 (>39); GLUCOSE, FASTING 102 MG/DL (70-100); POTASSIUM SERUM 4.3 MEQ/L (3.5-5.1); SODIUM LEVEL 143 MEQ/L (136-145)
[2021-07-04 12:49] LABS: CA19-9 TUMOR MARKER,CARBOHYDRA 19.4 U/ML (<35.0)
== END ==
LOC: M LABDRAWC 11:22
PROVIDERS: ATTEND Nurse Practitioner
DX: K86.9 Disease of pancreas, unspecified (principal); R97.8 Other abnormal tumor markers

== ENCOUNTER → 2021-08-29 | Outpatient (REF) | payer MEDICARE, BC ==
[2021-08-30 11:34] LABS: BASO # 0.1 10^3/uL (0.0-0.2); BASO % 0.6 % (0.0-1.0); EOS # 0.1 10^3/uL (0.0-0.5); EOS % 1.8 % (0.0-3.0); HEMATOCRIT 44.5 % (36.0-47.0); HEMOGLOBIN 14.3 g/dl (12.0-15.5); LYMPH # 1.5 10^3/uL (1.5-5.0); LYMPH % 18.7 % (24.0-44.0); MEAN CORPUSCULAR HGB CONC 32.1 g/dl (32.0-36.5); MEAN CORPUSCULAR VOLUME 87.1 fl (80.0-96.0); MONO # 1.1 10^3/uL (0.0-0.8); MONO % 14.3 % (2.0-8.0); NEUTROPHILS % 64.1 % (36.0-66.0); PLATELET COUNT, AUTOMATED 176 10^3/uL (150-450); RED BLOOD COUNT 5.11 10^6/uL (4.00-5.40); WHITE BLOOD COUNT 7.7 10^3/uL (4.0-10.0)
[2021-08-30 12:49] LABS: ALBUMIN 3.4 GM/DL (3.2-5.2); ALT/SGPT 21 U/L (12-78); BILIRUBIN,TOTAL 0.6 MG/DL (0.2-1.0); BLOOD UREA NITROGEN 13 MG/DL (7-18); CALCIUM LEVEL 9.2 MG/DL (8.8-10.2); CARBON DIOXIDE LEVEL 28 MEQ/L (21-32); CHLORIDE LEVEL 105 MEQ/L (98-107); CREATININE FOR GFR 0.76 MG/DL (0.55-1.30); GLOMERULAR FILTRATION RATE > 60.0 (>39); GLUCOSE, FASTING 102 MG/DL (70-100); POTASSIUM SERUM 3.8 MEQ/L (3.5-5.1); SODIUM LEVEL 139 MEQ/L (136-145); TOTAL PROTEIN 6.5 GM/DL (6.4-8.2)
== END ==
LOC: M SFHCCLAY 15:28
PROVIDERS: ATTEND Physician Assistant
DX: R19.7 Diarrhea, unspecified (principal)
CPT/HCPCS: 80053; 85025; 87505; G0463

== ENCOUNTER → 2021-11-14 | Outpatient (REF) | payer MEDICARE, BC ==
[~2021-11-14] MED LIST changes: -MONT10TA10 PO; +MONT10TA97 PO
[2021-11-14 15:46] LABS: BASO # 0.1 10^3/uL (0.0-0.2); EOS # 0.1 10^3/uL (0.0-0.5); EOS % 1.2 % (0.0-3.0); HEMATOCRIT 45.3 % (36.0-47.0); HEMOGLOBIN 14.6 g/dl (12.0-15.5); LYMPH # 1.7 10^3/uL (1.5-5.0); LYMPH % 22.1 % (24.0-44.0); MEAN CORPUSCULAR HGB CONC 32.2 g/dl (32.0-36.5); MEAN CORPUSCULAR VOLUME 86.9 fl (80.0-96.0); MONO # 0.9 10^3/uL (0.0-0.8); MONO % 11.3 % (2.0-8.0); NEUTROPHILS # 4.9 10^3/uL (1.5-8.5); NEUTROPHILS % 63.9 % (36.0-66.0); PLATELET COUNT, AUTOMATED 216 10^3/uL (150-450); RED BLOOD COUNT 5.21 10^6/uL (4.00-5.40); WHITE BLOOD COUNT 7.6 10^3/uL (4.0-10.0)
[2021-11-14 16:27] LABS: ALBUMIN 3.6 GM/DL (3.2-5.2); ALT/SGPT 26 U/L (12-78); BILIRUBIN,TOTAL 0.3 MG/DL (0.2-1.0); BLOOD UREA NITROGEN 12 MG/DL (7-18); CALCIUM LEVEL 9.2 MG/DL (8.8-10.2); CARBON DIOXIDE LEVEL 30 MEQ/L (21-32); CHLORIDE LEVEL 106 MEQ/L (98-107); CREATININE FOR GFR 0.72 MG/DL (0.55-1.30); GLOMERULAR FILTRATION RATE > 60.0 (>39); GLUCOSE, FASTING 97 MG/DL (70-100); POTASSIUM SERUM 4.5 MEQ/L (3.5-5.1); SODIUM LEVEL 142 MEQ/L (136-145); THYROID STIMULATING HORMONE 0.125 uIU/ML (0.358-3.740); TOTAL PROTEIN 6.8 GM/DL (6.4-8.2)
[2021-11-14 16:53] LABS: CA19-9 TUMOR MARKER,CARBOHYDRA 27.6 U/ML (<35.0)
[2021-11-15 07:28] LABS: FREE T3 3.2 PG/ML (2.2-4.0); FREE T4 1.28 NG/DL (0.76-1.46)
== END ==
LOC: M SFHCCLAY 11:45
PROVIDERS: ATTEND Family Medicine
DX: K86.2 Cyst of pancreas (principal); G61.81 Chronic inflammatory demyelinating polyneuritis; Z79.899 Other long term (current) drug therapy

== ENCOUNTER → 2022-05-23 | Outpatient (REF) | payer MEDICARE, BC | LOC: M LABDRWCV 11:31 | PROVIDERS: ATTEND Family Medicine | DX: K86.2 Cyst of pancreas (principal); Z79.899 Other long term (current) drug therapy; Z79.82 Long term (current) use of aspirin ==

== ENCOUNTER → 2022-06-28 | Outpatient (REF) | payer MEDICARE, BC ==
[2022-06-28 18:14] LABS: BASO # 0.1 10^3/uL (0.0-0.2); BASO % 0.8 % (0.0-1.0); EOS # 0.1 10^3/uL (0.0-0.5); EOS % 1.5 % (0.0-3.0); HEMATOCRIT 47.2 % (36.0-47.0); HEMOGLOBIN 14.9 g/dl (12.0-15.5); LYMPH # 1.5 10^3/uL (1.5-5.0); LYMPH % 24.4 % (24.0-44.0); MEAN CORPUSCULAR HEMOGLOBIN 28.5 pg (27.0-33.0); MEAN CORPUSCULAR HGB CONC 31.6 g/dl (32.0-36.5); MEAN CORPUSCULAR VOLUME 90.4 fl (80.0-96.0); MONO # 0.7 10^3/uL (0.0-0.8); MONO % 11.5 % (2.0-8.0); NEUTROPHILS # 3.8 10^3/uL (1.5-8.5); NEUTROPHILS % 61.2 % (36.0-66.0); PLATELET COUNT, AUTOMATED 206 10^3/uL (150-450); RED BLOOD COUNT 5.22 10^6/uL (4.00-5.40); WHITE BLOOD COUNT 6.2 10^3/uL (4.0-10.0)
[2022-06-28 19:23] LABS: ALBUMIN 3.5 GM/DL (3.2-5.2); ALT/SGPT 26 U/L (12-78); BILIRUBIN,TOTAL 0.4 MG/DL (0.2-1.0); BLOOD UREA NITROGEN 19 MG/DL (7-18); CALCIUM LEVEL 9.1 MG/DL (8.8-10.2); CARBON DIOXIDE LEVEL 31 MEQ/L (21-32); CHLORIDE LEVEL 108 MEQ/L (98-107); CREATININE FOR GFR 0.85 MG/DL (0.55-1.30); FREE T4 0.94 NG/DL (0.76-1.46); GLOMERULAR FILTRATION RATE > 60.0 (>32); GLUCOSE, FASTING 83 MG/DL (70-100); POTASSIUM SERUM 4.9 MEQ/L (3.5-5.1); SODIUM LEVEL 141 MEQ/L (136-145); TOTAL PROTEIN 6.5 GM/DL (6.4-8.2)
[2022-06-28 19:40] LABS: THYROID PEROXIDASE ANTIBODY 45.6 U/ML (<60.0)
[2022-06-28 19:41] LABS: THYROGLOBULIN ANTIBODY < 15.0 U/ML (<60.0)
[2022-06-28 20:57] LABS: FREE T3 3.1 PG/ML (2.2-4.0)
== END ==
LOC: M SFHCCLAY 11:16
PROVIDERS: ATTEND Family Medicine
DX: Q89.2 Congenital malformations of other endocrine glands (principal); E05.90 Thyrotoxicosis, unspecified without thyrotoxic crisis or storm; Z86.39 Personal history of other endocrine, nutritional and metabolic disease

== ENCOUNTER → 2022-07-01 | Outpatient (REF) | payer MEDICARE, BC | LOC: M SFHCDERM 17:13 | PROVIDERS: ATTEND Nurse Practitioner Family | DX: D48.9 Neoplasm of uncertain behavior, unspecified (principal) ==

== ENCOUNTER → 2022-10-16 | Outpatient (REF) | payer MEDICARE, BC ==
[2022-10-16 17:45] LABS: ALBUMIN 3.6 G/DL (3.2-5.2); ALKALINE PHOSPHATASE 120 U/L (46-116); ALT/SGPT 16 U/L (7.0-40); AST/SGOT 19 U/L (<34); BILIRUBIN,TOTAL 0.7 MG/DL (0.3-1.2); BLOOD UREA NITROGEN 19 MG/DL (9-23); CALCIUM LEVEL 8.8 MG/DL (8.3-10.6); CARBON DIOXIDE LEVEL 29 MMOL/L (20-31); CHLORIDE LEVEL 105 MMOL/L (98-107); CREATININE FOR GFR 0.77 MG/DL (0.55-1.30); GLOMERULAR FILTRATION RATE > 60.0 (>32); GLUCOSE, FASTING 106 MG/DL (74-106); POTASSIUM SERUM 4.1 MMOL/L (3.5-5.1); SODIUM LEVEL 141 MMOL/L (136-145); TOTAL PROTEIN 6.3 G/DL (5.7-8.2)
[2022-10-16 18:05] LABS: CA19-9 TUMOR MARKER,CARBOHYDRA 35.3 U/ML (<35.0)
== END ==
LOC: M LABDRWCV 16:41
PROVIDERS: ATTEND Nurse Practitioner
DX: D49.0 Neoplasm of unspecified behavior of digestive system (principal); R97.8 Other abnormal tumor markers

== ENCOUNTER → 2023-01-01 | Outpatient (CLI) | payer MEDICARE, BC ==
[~2023-01-01] MED LIST changes: +MONT4TAB2 PO; -SING4CHW9 PO
== END ==
LOC: M CLY 10:38
PROVIDERS: ATTEND Family Medicine
DX: M79.605 Pain in left leg (principal)

== ENCOUNTER → 2023-01-01 | Outpatient (CLI) | payer MEDICARE, BC | LOC: M CLY 10:42 | PROVIDERS: ATTEND Family Medicine | DX: M79.605 Pain in left leg (principal) ==

== ENCOUNTER → 2023-01-09 | Outpatient (REF) | payer MEDICARE, BC | LOC: M SFHCCLAY 16:12 | PROVIDERS: ATTEND Family Medicine | DX: R26.2 Difficulty in walking, not elsewhere classified (principal); K86.2 Cyst of pancreas ==

== ENCOUNTER → 2023-05-14 | Outpatient (REF) | payer MEDICARE, BC ==
[2023-05-14 18:29] LABS: BASO # 0.1 10^3/uL (0.0-0.2); EOS # 0.1 10^3/uL (0.0-0.5); EOS % 1.2 % (0.0-3.0); HEMATOCRIT 49.2 % (36.0-47.0); HEMOGLOBIN 15.5 g/dl (12.0-15.5); LYMPH # 1.3 10^3/uL (1.5-5.0); LYMPH % 22.1 % (24.0-44.0); MEAN CORPUSCULAR HEMOGLOBIN 28.5 pg (27.0-33.0); MEAN CORPUSCULAR HGB CONC 31.5 g/dl (32.0-36.5); MEAN CORPUSCULAR VOLUME 90.4 fl (80.0-96.0); MONO # 0.6 10^3/uL (0.0-0.8); MONO % 10.6 % (2.0-8.0); NEUTROPHILS # 3.8 10^3/uL (1.5-8.5); NEUTROPHILS % 64.6 % (36.0-66.0); PLATELET COUNT, AUTOMATED 209 10^3/uL (150-450); RED BLOOD COUNT 5.44 10^6/uL (4.00-5.40); WHITE BLOOD COUNT 5.9 10^3/uL (4.0-10.0)
[2023-05-14 19:08] LABS: ALBUMIN 3.8 G/DL (3.2-5.2); ALKALINE PHOSPHATASE 101 U/L (46-116); ALT/SGPT 17 U/L (7.0-40); AST/SGOT 16 U/L (<34); BILIRUBIN,TOTAL 0.6 MG/DL (0.3-1.2); BLOOD UREA NITROGEN 13 MG/DL (9-23); CALCIUM LEVEL 9.5 MG/DL (8.3-10.6); CARBON DIOXIDE LEVEL 30 MMOL/L (20-31); CHLORIDE LEVEL 104 MMOL/L (98-107); CREATININE FOR GFR 0.77 MG/DL (0.55-1.30); GLOMERULAR FILTRATION RATE > 60.0 (>32); GLUCOSE, FASTING 101 MG/DL (74-106); POTASSIUM SERUM 4.6 MMOL/L (3.5-5.1); SODIUM LEVEL 142 MMOL/L (136-145); TOTAL PROTEIN 6.6 G/DL (5.7-8.2)
[2023-05-14 19:09] LABS: FREE T4 1.19 NG/DL (0.89-1.76); THYROID STIMULATING HORMONE 2.521 uIU/ML (0.55-4.78)
[2023-05-14 19:26] LABS: CA19-9 TUMOR MARKER,CARBOHYDRA 38.9 U/ML (<35.0)
== END ==
LOC: M SFHCCLAY 10:32
PROVIDERS: ATTEND Family Medicine
DX: K86.2 Cyst of pancreas (principal); R26.2 Difficulty in walking, not elsewhere classified; Z86.39 Personal history of other endocrine, nutritional and metabolic disease; Q89.2 Congenital malformations of other endocrine glands; R23.3 Spontaneous ecchymoses

== ENCOUNTER → 2023-11-28 | Outpatient (REF) | payer MEDICARE, BC ==
[2023-11-28 18:59] LABS: HEMATOCRIT 48.3 % (36.0-47.0); HEMOGLOBIN 15.6 g/dl (12.0-15.5); MEAN CORPUSCULAR HEMOGLOBIN 29.2 pg (27.0-33.0); MEAN CORPUSCULAR HGB CONC 32.3 g/dl (32.0-36.5); MEAN CORPUSCULAR VOLUME 90.4 fl (80.0-96.0); PLATELET COUNT, AUTOMATED 191 10^3/uL (150-450); RED BLOOD COUNT 5.34 10^6/uL (4.00-5.40); WHITE BLOOD COUNT 5.7 10^3/uL (4.0-10.0)
[2023-11-28 19:25] LABS: ALBUMIN 3.8 G/DL (3.2-5.2); ALKALINE PHOSPHATASE 115 U/L (46-116); ALT/SGPT 16 U/L (7.0-40); AST/SGOT 16 U/L (<34); BILIRUBIN,TOTAL 0.5 MG/DL (0.3-1.2); BLOOD UREA NITROGEN 16 MG/DL (9-23); CARBON DIOXIDE LEVEL 28 MMOL/L (20-31); CHLORIDE LEVEL 106 MMOL/L (98-107); CREATININE FOR GFR 0.68 MG/DL (0.55-1.30); GLOMERULAR FILTRATION RATE > 60.0 (>32); GLUCOSE, FASTING 92 MG/DL (74-106); POTASSIUM SERUM 4.1 MMOL/L (3.5-5.1); SODIUM LEVEL 139 MMOL/L (136-145); TOTAL PROTEIN 6.8 G/DL (5.7-8.2)
[2023-11-28 19:40] LABS: CA19-9 TUMOR MARKER,CARBOHYDRA 26.6 U/ML (<35.0)
[2023-12-03 04:45] LABS: FREE KAPPA LIGHT CHAINS SERUM 27.3 mg/L (3.3-19.4); FREE LAMBDA LIGHT CHAINS SERUM 19.6 mg/L (5.7-26.3); KAPPA/LAMBDA RATIO SERUM 1.39 (0.26-1.65)
== END ==
LOC: M SFHCCLAY 12:42
PROVIDERS: ATTEND Family Medicine
DX: Q89.2 Congenital malformations of other endocrine glands (principal); K51.818 Other ulcerative colitis with other complication; J45.909 Unspecified asthma, uncomplicated; R23.3 Spontaneous ecchymoses; R26.2 Difficulty in walking, not elsewhere classified; G61.81 Chronic inflammatory demyelinating polyneuritis; D37.8 Neoplasm of uncertain behavior of other specified digestive organs

== ENCOUNTER → 2024-03-31 | Outpatient (REF) | payer MEDICARE, OTHER ==
[~2024-03-31] MED LIST changes: +AMOX875T PO; +ECHI1CAP2 PO; +GALZ50CA PO; +KRIL1CAP24 PO; +LEVOTAB10; +OMEP-173; +TUME1CAP PO; +VITACAP8 PO
[2024-03-31 12:31] LABS: BASO % 0.7 % (0.0-1.0); EOS # 0.1 10^3/uL (0.0-0.5); EOS % 1.5 % (0.0-3.0); HEMATOCRIT 46.5 % (36.0-47.0); HEMOGLOBIN 14.9 g/dl (12.0-15.5); LYMPH # 1.4 10^3/uL (1.5-5.0); LYMPH % 22.6 % (24.0-44.0); MEAN CORPUSCULAR HEMOGLOBIN 28.9 pg (27.0-33.0); MEAN CORPUSCULAR VOLUME 90.1 fl (80.0-96.0); MONO # 0.6 10^3/uL (0.0-0.8); MONO % 9.9 % (2.0-8.0); NEUTROPHILS # 3.9 10^3/uL (1.5-8.5); PLATELET COUNT, AUTOMATED 192 10^3/uL (150-450); RED BLOOD COUNT 5.16 10^6/uL (4.00-5.40)
[2024-03-31 13:08] LABS: ALBUMIN 3.6 G/DL (3.2-5.2); ALKALINE PHOSPHATASE 117 U/L (46-116); ALT/SGPT 15 U/L (7.0-40); AST/SGOT 12 U/L (<34); BILIRUBIN,TOTAL 0.5 MG/DL (0.3-1.2); BLOOD UREA NITROGEN 16 MG/DL (9-23); CALCIUM LEVEL 9.1 MG/DL (8.3-10.6); CARBON DIOXIDE LEVEL 29 MMOL/L (20-31); CHLORIDE LEVEL 107 MMOL/L (98-107); CREATININE FOR GFR 0.81 MG/DL (0.55-1.30); FREE T4 1.08 NG/DL (0.89-1.76); GLOMERULAR FILTRATION RATE > 60.0 (>32); GLUCOSE, FASTING 101 MG/DL (74-106); POTASSIUM SERUM 4.6 MMOL/L (3.5-5.1); SODIUM LEVEL 142 MMOL/L (136-145); TOTAL PROTEIN 6.2 G/DL (5.7-8.2)
[2024-03-31 13:36] LABS: FREE T3 3.6 PG/ML (2.3-4.2)
[2024-03-31 14:05] LABS: CA19-9 TUMOR MARKER,CARBOHYDRA 32.4 U/ML (<35.0)
[2024-03-31 20:37] LABS: ERYTHROCYTE SEDIMENTATION RATE 21 mm/hr (0-30)
[2024-04-01 07:57] LABS: T P ELECTROPHORESIS SO 6.4 g/dL (6.1-8.1)
== END ==
LOC: M SFHCCLAY 08:58
PROVIDERS: ATTEND Family Medicine
DX: D47.2 Monoclonal gammopathy (principal); K86.2 Cyst of pancreas; E05.90 Thyrotoxicosis, unspecified without thyrotoxic crisis or storm; Z79.899 Other long term (current) drug therapy; D37.8 Neoplasm of uncertain behavior of other specified digestive organs

== ENCOUNTER → 2024-04-21 | Outpatient (REF) | payer MEDICARE, OTHER | LOC: M LABDRAWC 18:12 | PROVIDERS: ATTEND Physician Assistant Surgical | DX: D49.0 Neoplasm of unspecified behavior of digestive system (principal) ==

== ENCOUNTER → 2024-07-08 | Outpatient (REF) | payer MEDICARE, OTHER | LOC: M SFHCCAPE 14:14 | PROVIDERS: ATTEND Physician Assistant Medical | DX: R30.0 Dysuria (principal) ==

== ENCOUNTER → 2024-07-20 | Outpatient (REF) | payer MEDICARE, OTHER ==
[2024-07-20 18:19] LABS: HEMATOCRIT 46.9 % (36.0-47.0); HEMOGLOBIN 14.8 g/dl (12.0-15.5); MEAN CORPUSCULAR HEMOGLOBIN 28.1 pg (27.0-33.0); MEAN CORPUSCULAR HGB CONC 31.6 g/dl (32.0-36.5); MEAN CORPUSCULAR VOLUME 89.2 fl (80.0-96.0); PLATELET COUNT, AUTOMATED 208 10^3/uL (150-450); RED BLOOD COUNT 5.26 10^6/uL (4.00-5.40); WHITE BLOOD COUNT 7.2 10^3/uL (4.0-10.0)
[2024-07-20 18:44] LABS: ALBUMIN 3.5 G/DL (3.2-5.2); ALKALINE PHOSPHATASE 105 U/L (35-104); ALT/SGPT 11 U/L (7.0-40); AST/SGOT 12 U/L (<34); BILIRUBIN,TOTAL 0.3 MG/DL (0.3-1.2); BLOOD UREA NITROGEN 19 MG/DL (9-23); CALCIUM LEVEL 9.6 MG/DL (8.3-10.6); CARBON DIOXIDE LEVEL 27 MMOL/L (20-31); CHLORIDE LEVEL 109 MMOL/L (98-107); CREATININE FOR GFR 0.71 MG/DL (0.55-1.30); GLOMERULAR FILTRATION RATE > 60.0 (>32); GLUCOSE, FASTING 97 MG/DL (74-106); POTASSIUM SERUM 4.7 MMOL/L (3.5-5.1); SODIUM LEVEL 141 MMOL/L (136-145); TOTAL PROTEIN 6.6 G/DL (5.7-8.2)
[2024-07-20 18:46] LABS: FREE T4 1.31 NG/DL (0.89-1.76); THYROID STIMULATING HORMONE 0.121 uIU/ML (0.55-4.78)
== END ==
LOC: M SFHCCLAY 09:57
PROVIDERS: ATTEND Family Medicine
DX: I48.19 Other persistent atrial fibrillation (principal); Z79.899 Other long term (current) drug therapy

== ENCOUNTER → 2024-07-23 | Outpatient (REF) | payer MEDICARE, OTHER | LOC: M SFHCCLAY 11:35 | PROVIDERS: ATTEND Nurse Practitioner Family | DX: N30.00 Acute cystitis without hematuria (principal); N94.89 Other specified conditions associated with female genital organs and menstrual cycle ==

== ENCOUNTER → 2024-07-30 | Outpatient (REF) | payer MEDICARE, OTHER ==
[2024-07-30 14:56] LABS: BASO # 0.1 10^3/uL (0.0-0.2); BASO % 0.8 % (0.0-1.0); EOS # 0.1 10^3/uL (0.0-0.5); EOS % 1.3 % (0.0-3.0); HEMATOCRIT 45.7 % (36.0-47.0); HEMOGLOBIN 14.4 g/dl (12.0-15.5); LYMPH # 1.2 10^3/uL (1.5-5.0); LYMPH % 19.6 % (24.0-44.0); MEAN CORPUSCULAR HGB CONC 31.5 g/dl (32.0-36.5); MEAN CORPUSCULAR VOLUME 88.7 fl (80.0-96.0); MONO # 0.7 10^3/uL (0.0-0.8); MONO % 10.8 % (2.0-8.0); NEUTROPHILS % 67.2 % (36.0-66.0); PLATELET COUNT, AUTOMATED 237 10^3/uL (150-450); RED BLOOD COUNT 5.15 10^6/uL (4.00-5.40)
[2024-07-30 15:01] LABS: ALBUMIN 3.4 G/DL (3.2-5.2); ALKALINE PHOSPHATASE 105 U/L (35-104); ALT/SGPT 13 U/L (7.0-40); AST/SGOT 11 U/L (<34); BILIRUBIN,TOTAL 0.4 MG/DL (0.3-1.2); BLOOD UREA NITROGEN 18 MG/DL (9-23); CALCIUM LEVEL 9.5 MG/DL (8.3-10.6); CARBON DIOXIDE LEVEL 30 MMOL/L (20-31); CHLORIDE LEVEL 109 MMOL/L (98-107); CREATININE FOR GFR 0.73 MG/DL (0.55-1.30); GLOMERULAR FILTRATION RATE > 60.0 (>32); GLUCOSE, FASTING 99 MG/DL (74-106); SODIUM LEVEL 144 MMOL/L (136-145); TOTAL PROTEIN 6.5 G/DL (5.7-8.2)
[2024-07-30 15:02] LABS: FREE T4 1.25 NG/DL (0.89-1.76)
[2024-07-30 15:03] LABS: THYROID STIMULATING HORMONE 0.817 uIU/ML (0.55-4.78)
== END ==
LOC: M SFHCCLAY 11:32
PROVIDERS: ATTEND Nurse Practitioner Family
DX: I48.19 Other persistent atrial fibrillation (principal); K86.2 Cyst of pancreas; E04.9 Nontoxic goiter, unspecified; N94.89 Other specified conditions associated with female genital organs and menstrual cycle; N30.00 Acute cystitis without hematuria; K62.5 Hemorrhage of anus and rectum; M54.50 Low back pain, unspecified; R10.9 Unspecified abdominal pain; R19.5 Other fecal abnormalities; R31.9 Hematuria, unspecified; Z79.01 Long term (current) use of anticoagulants

== ENCOUNTER → 2024-08-25 | Outpatient (CLI) | payer MEDICARE, OTHER | LOC: M CARPUL 15:42 | PROVIDERS: ATTEND Nurse Practitioner Family | DX: I48.19 Other persistent atrial fibrillation (principal); I70.0 Atherosclerosis of aorta; I34.0 Nonrheumatic mitral (valve) insufficiency ==

== ENCOUNTER 2024-11-18 06:55 | Day surgery (SDC) | payer MEDICARE, OTHER ==
[~2024-11-18] VITALS: Ht 172.7 cm; Wt 88.5 kg
[~2024-11-18 06:55] MED LIST changes: +METO1TAB7 PO; +OMEP1CAP73 PO; +THERTAB52 PO; +VITA100093 PO
[2024-11-18] MEDS ORDERED: LIDOCAINE 2% 100MG/5ML SDV (FOR ANES.) As Ordered ONE (07:01)
[2024-11-18] MEDS ORDERED: propofoL 200 MG/20 ML VIAL As Ordered ONE (07:01)
[2024-11-18 08:30] VITALS: BP 119/58; O2SAT 99
== END 2024-11-18 08:50 | disposition home or self-care (01) ==
LOC: M OPP 06:55
PROVIDERS: ATTEND Surgery
DX: Z12.11 Encounter for screening for malignant neoplasm of colon (principal); D12.3 Benign neoplasm of transverse colon; K52.9 Noninfective gastroenteritis and colitis, unspecified; K57.30 Diverticulosis of large intestine without perforation or abscess without bleeding; Z86.0100 Personal history of colon polyps, unspecified; K21.9 Gastro-esophageal reflux disease without esophagitis; E89.0 Postprocedural hypothyroidism; G62.9 Polyneuropathy, unspecified; J45.909 Unspecified asthma, uncomplicated; Z79.899 Other long term (current) drug therapy; Z79.82 Long term (current) use of aspirin; Z85.828 Personal history of other malignant neoplasm of skin; Z88.2 Allergy status to sulfonamides; Z88.7 Allergy status to serum and vaccine; Z80.0 Family history of malignant neoplasm of digestive organs

== ENCOUNTER → 2025-01-13 | Outpatient (REF) | payer MEDICARE, OTHER ==
[~2025-01-13] MED LIST changes: +ECHI400C19 PO; -ECHI400C2 PO; -GALZ50CA PO; +ZINC50CA4 PO
[2025-01-13 17:24] LABS: HEMATOCRIT 45.6 % (36.0-47.0); HEMOGLOBIN 14.7 g/dl (12.0-15.5); MEAN CORPUSCULAR HEMOGLOBIN 29.1 pg (27.0-33.0); MEAN CORPUSCULAR HGB CONC 32.2 g/dl (32.0-36.5); MEAN CORPUSCULAR VOLUME 90.3 fl (80.0-96.0); PLATELET COUNT, AUTOMATED 182 10^3/uL (150-450); RED BLOOD COUNT 5.05 10^6/uL (4.00-5.40); WHITE BLOOD COUNT 5.5 10^3/uL (4.0-10.0)
[2025-01-13 17:33] LABS: ALBUMIN 3.5 G/DL (3.2-5.2); BILIRUBIN,TOTAL 0.5 MG/DL (0.3-1.2); CALCIUM LEVEL 8.9 MG/DL (8.3-10.6); CREATININE FOR GFR 0.73 MG/DL (0.55-1.30); GLOMERULAR FILTRATION RATE 82.1 (>32); TOTAL PROTEIN 6.3 G/DL (5.7-8.2)
[2025-01-13 17:37] LABS: FREE T4 1.14 NG/DL (0.89-1.76); THYROID STIMULATING HORMONE 2.551 uIU/ML (0.55-4.78)
[2025-01-13 17:52] LABS: CA19-9 TUMOR MARKER,CARBOHYDRA 52.2 U/ML (<35.0)
[2025-01-13 18:43] LABS: HEMOGLOBIN A1c 5.4 % (4.0-6.0)
== END ==
LOC: M SFHCCLAY 11:10
PROVIDERS: ATTEND Nurse Practitioner Family
DX: I48.19 Other persistent atrial fibrillation (principal); Z79.01 Long term (current) use of anticoagulants; K86.2 Cyst of pancreas; E04.9 Nontoxic goiter, unspecified; R19.5 Other fecal abnormalities; K62.5 Hemorrhage of anus and rectum; R42 Dizziness and giddiness; Z79.899 Other long term (current) drug therapy; R97.8 Other abnormal tumor markers